=== PATIENT | male | born 1965 | race Caucasian/White ===

== ENCOUNTER 2018-04-14 21:20 | Emergency (ER) | payer SELFPAY ==
--- NOTE | 2018-04-14 22:53 | EDM.PDOC ---
ED HPI GENERAL MEDICAL PROBLEM - General Chief Complaint: Lower Extremity Injury/Pain Stated Complaint: INJURED RT BIG TOE Time Seen by Provider: 04/14/18 22:37 Source of Information: Reports: Patient History Limitations: Reports: No Limitations - History of Present Illness INITIAL COMMENTS - FREE TEXT/NARRATIVE: This man caught his right great toe between a boat and the dock crushing it. He has severe pain, so bad that it made him dizzy and he passed out. He's been outside all day but thinks he was hydrating ok. No etoh. EMS thought he needed toe xrayed that is why they are here. Patient agrees the passing out was vasovagal and due to pain. Right Pain Score (Numeric/FACES): 5 - Related Data Allergies Allergy/AdvReac Type Severity Reaction Status Date / Time No Known Allergies Allergy Verified 04/14/18 22:14 Home Meds: Home Meds NK [No Known Home Meds] 04/14/18 [History] Past Medical History Respiratory History: Reports: Other (See Below) Other Respiratory History: exercised induced asthma Musculoskeletal History: Reports: Osteoarthritis Other Musculoskeletal History: osteoarthritis to left knee - Past Surgical History Musculoskeletal Surgical History: Reports: Other (See Below) Other Musculoskeletal Surgeries/Procedures:: left and right knees arthroscopy for cartiledge removal and ligament repairs Social & Family History - Family History Family Medical History: Noncontributory - Tobacco Use Smoking Status *Q: Never Smoker Second Hand Smoke Exposure: No - Caffeine Use Caffeine Use: Reports: Coffee - Alcohol Use Days Per Week of Alcohol Use: 2 Number of Drinks Per Day: 2 Total Drinks Per Week: 4 - Recreational Drug Use Recreational Drug Use: No Review of Systems - Review of Systems Review Of Systems: ROS reveals no pertinent complaints other than HPI. ED EXAM, GENERAL - Physical Exam Exam: See Below Exam Limited By: No Limitations General Appearance: Alert, WD/WN, No Apparent Distress Extremities: Other (proximal 2-3 mm of rt great toenail with subungual hematoma. Some "blood blistering" to about 2-3 mm margin of nail bed. Nail otherwise intact. I manipulated the toe and there was no crepitance or excess pain. It does not appear to be fractured. No ecchymosis. VNT all intact) Course - Vital Signs Last Recorded V/S: Last Vital Signs Temp 36.1 C 04/14/18 22:21 Pulse 72 04/14/18 22:21 Resp 16 04/14/18 22:21 BP 159/94 H 04/14/18 22:21 Pulse Ox 97 04/14/18 22:10 - Re-Assessments/Exams Free Text/Narrative Re-Assessment/Exam: 04/14/18 23:02 I offered to image toe but don't think it's needed. Patient chose no imaging and I think this is appropriate. Departure - Departure Time of Disposition: 22:50 Disposition: Home, Self-Care 01 Condition: Fair Clinical Impression: Crushing injury of toe of right foot - Discharge Information Instructions: Nail Bed Injury, [id number] Referrals: PCP,None [Primary Care Provider] - Forms: ED Department Discharge Additional Instructions: It's very unlikely that the toe is fractured. If it is then it doesn't appear to be out of place. In general, nothing is done about fractured toes other than wearing comfortable shoes and time. The nail may fall off. Weight bearing as tolerated. Tylenol/ibuprofen for pain.
== END 2018-04-14 23:00 | disposition home or self-care (01) ==
LOC: JP.ED 21:20
DX: S97.111A Crushing injury of right great toe, initial encounter (principal); W23.0XXA Caught, crushed, jammed, or pinched between moving objects, initial encounter
CPT/HCPCS: 99283